=== PATIENT | female | born 1980 | race Caucasian/White ===

== ENCOUNTER 2024-06-14 21:01 | Emergency (ER) | payer MEDICAID ==
[2024-06-14 21:38] LABS: BASOPHILS ABSOLUTE AUTO 0.1 K/mm3 (0.0-0.2); BASOPHILS PERCENT AUTO 0.8 % (0.0-1.0); EOSINOPHILS ABSOLUTE AUTO 0.4 K/mm3 (0.0-0.4); EOSINOPHILS PERCENT AUTO 3.7 % (0.0-6.0); HEMATOCRIT 38.7 % (37.0-47.0); HEMOGLOBIN 12.1 gm/dl (12.0-16.0); IMMATURE GRAN ABSOLUTE AUTO 0.02 K/mm3 (0.00-0.05); IMMATURE GRAN PERCENT AUTO 0.2 % (0.0-0.4); LYMPHOCYTES ABSOLUTE AUTO 3.6 K/mm3 (1.0-4.8); LYMPHOCYTES PERCENT AUTO 37.1 % (24.0-44.0); MEAN CORPUSCULAR HEMOGLOBIN 23.8 pg (28.0-32.0); MEAN CORPUSCULAR HGB CONC 31.3 g/dl (32.0-36.0); MEAN CORPUSCULAR VOLUME 76.2 fl (83.0-99.0); MONOCYTES ABSOLUTE AUTO 0.9 K/mm3 (0.0-0.8); NEUTROPHILS ABSOLUTE AUTO 4.8 K/mm3 (1.8-7.7); NEUTROPHILS PERCENT AUTO 49.2 % (41.0-71.0); PLATELET COUNT,PLT 390 K/mm3 (150-400); RED BLOOD CELL COUNT 5.08 M/mm3 (4.10-5.30); WHITE BLOOD CELL COUNT,WBC 9.81 K/mm3 (3.9-11.3)
[2024-06-14 21:45] LABS: INR 1.08; PROTHROMBIN TIME 11.4 SECONDS (9.7-12.0)
[2024-06-14 21:50] LABS: A/G RATIO 1.1 (1-2); ALANINE AMINOTRANSFERASE,ALT 31 U/L (14-59); ALBUMIN 4.1 g/dl (3.4-5.0); ALKALINE PHOSPHATASE 92 U/L (46-116); ANION GAP 14.3 (5-15); ASPARTATE AMNIOTRANSFERASE,AST 20 U/L (15-37); BILIRUBIN TOTAL 0.4 mg/dL (0.2-1.0); BLOOD UREA NITROGEN,BUN 11 mg/dL (7-18); BUN/CREATININE RATIO 12.2 (14-18); CALCIUM 9.3 mg/dL (8.5-10.1); CARBON DIOXIDE,CO2 24 mEq/L (21-32); CHLORIDE,CL 106 mEq/L (98-107); CREATINE KINASE,CK 70 U/L (26-192); CREATININE 0.9 mg/dL (0.55-1.02); EST CRCL DRUG DOSING (CG) 73.27 mL/min; ESTIMATED GFR 82 mL/min (>60); GLUCOSE RANDOM 106 mg/dL (70-99); LIPASE 102 U/L (16-77); MAGNESIUM 1.6 mg/dL (1.8-2.4); POTASSIUM,K 3.3 mEq/L (3.5-5.1); PROTEIN TOTAL,TP 7.8 g/dl (6.4-8.2); SODIUM,NA 141 mEq/L (136-145)
[2024-06-14] MEDS: Ketorolac 30 MG/ML SDV IVPUSH ONE (21:51)
[2024-06-14] MEDS: Ondansetron 4 MG/2 ML SDV IVPUSH ONE (21:52)
[2024-06-14] MEDS: Pantoprazole 40 MG Vial IVPUSH ONE (21:52)
[2024-06-14] MEDS: Famotidine 20 MG/2 ML SDV IVPUSH ONE (21:52)
[2024-06-14] MEDS: Sodium Chloride 0.9% 1,500 ML IV ONE (21:52)
[2024-06-14] MEDS: Acetaminophen 325 MG Tab PO ONE (21:52)
[2024-06-14 21:54] LABS: TROPONIN I HIGH SENSITIVITY < 4 pg/mL (<=51)
[2024-06-14] MEDS: Magnesium Oxide 400 MG Tab PO ONE (22:10)
[2024-06-14] MEDS: Potassium Chloride 20 MEQ Tab.ER PO ONE (22:10)
[2024-06-14 23:25] LABS: BARBITURATE SCREEN,URINE NEGATIVE (CUTOFF=200); BENZODIAZEPINES SCREEN,URINE PRESUMPTIVE POSITIVE (CUTOFF=150); BUPRENORPHINE SCREEN,URINE NEGATIVE (CUTOFF=10); METHADONE SCREEN, URINE NEGATIVE (CUTOFF=200); METHAMPHETAMINES SCREEN, URINE PRESUMPTIVE POSITIVE (CUTOFF=500); OXYCODONE SCREEN,URINE NEGATIVE (CUT0FF=100); THC SCREEN,URINE 20 NG/ML PRESUMPTIVE POSITIVE (CUTOFF=50)
[2024-06-14 23:29] LABS: AMPHETAMINES SCREEN, URINE PRESUMPTIVE POSITIVE (CUTOFF=500)
== END 2024-06-15 00:50 | disposition home or self-care (01) ==
LOC: JD.ED 21:01
DX: K21.9 Gastro-esophageal reflux disease without esophagitis (principal); F19.10 Other psychoactive substance abuse, uncomplicated; M79.10 Myalgia, unspecified site; Z88.0 Allergy status to penicillin; Z88.1 Allergy status to other antibiotic agents; Z88.8 Allergy status to other drugs, medicaments and biological substances; Z79.899 Other long term (current) drug therapy
CPT/HCPCS: 36415; 71045; 80053; 80306; 80307; 82550; 83690; 83735; 84484; 85025; 85610; 87428; 93005; 96361; 96374; 96375; 99285; A9270; J1885; J2405; J2470; J7030

== ENCOUNTER 2024-06-15 23:44 | Emergency (ER) | payer MEDICAID | END 2024-06-16 00:22 | LOC: JD.ED 23:44 | DX: R10.13 Epigastric pain (principal); Z53.20 Procedure and treatment not carried out because of patient's decision for unspecified reasons; Z88.0 Allergy status to penicillin; Z88.8 Allergy status to other drugs, medicaments and biological substances; Z79.899 Other long term (current) drug therapy | CPT/HCPCS: 93005; 93010; 99284 ==